=== PATIENT | male | born 1995 | race Caucasian/White ===

== ENCOUNTER 2016-06-29 00:07 | Emergency (ER) | payer OTHER ==
[~2016-06-29] VITALS: Ht 172.7 cm; Wt 68.0 kg
[2016-06-29 00:16] VITALS: BP 125/58; PULSE 92; RESP 14; TEMP 98.1; O2SAT 97
[2016-06-29] MEDS ORDERED: DIPHTH/TETANUS/ACEL PERTUSSIS (BOOSTER) 0.5 ML VIAL/PFS IM ONE (01:38)
[2016-06-29 02:43] LABS: AUTOMATED NEUTROPHIL # 6.8 TH/MM3 (1.8-7.7); BASOPHIL # 0.1 TH/MM3 (0-0.2); EOSINOPHIL # 0.3 TH/MM3 (0-0.4); EOSINOPHIL % 2.4 % (0.0-4.0); HEMATOCRIT 37.2 % (39.0-51.0); LYMPH % 26.6 % (9.0-44.0); LYMPHOCYTE # 2.9 TH/MM3 (1.0-4.8); MEAN CELL VOLUME 87.3 FL (80.0-100.0); MEAN CORPUSCULAR HEMOGLOBIN 30.6 PG (27.0-34.0); MEAN CORPUSCULAR HGB CONC 35.1 % (32.0-36.0); MONO % 8.4 % (0.0-8.0); NEUT % 61.6 % (16.0-70.0); PLATELET COUNT 328 TH/MM3 (150-450); RED BLOOD COUNT 4.26 MIL/MM3 (4.50-5.90)
[2016-06-29 02:44] LABS: HEMO FLAGS AUTO DIFF
[2016-06-29 02:59] LABS: BLOOD UREA NITROGEN 16 MG/DL (7-18)
[2016-06-29 03:00] LABS: ACETAMINOPHEN LESS THAN 2.0 MCG/ML (10.0-30.0); ALKALINE PHOSPHATASE 83 U/L (45-117); ALT (GPT) 27 U/L (12-78); ANION GAP 10 MEQ/L (5-15); AST (GOT) 31 U/L (15-37); BICARBONATE 24.1 MEQ/L (21.0-32.0); CHLORIDE 105 MEQ/L (98-107); GLOMERULAR FILTRATION RATE 77 ML/MIN (>89); POTASSIUM 3.7 MEQ/L (3.5-5.1); SODIUM (NA) 139 MEQ/L (136-145); TOTAL BILIRUBIN ADULT 0.7 MG/DL (0.2-1.0)
--- NOTE | 2016-06-29 03:03 | PD ---
HPI Chief Complaint: Psychiatric Symptoms Time Seen by Provider: 01:15 Travel History International Travel<30 days: No Contact w/Intl Traveler<30days: No Traveled to known affect area: No History of Present Illness HPI Patient comes in under George act by police. Patient states that he believes that he had a mental breakdown. Patient denies anything like this in the past. Denies any homicidal or suicidal ideations. Patient reports that he did cut his stomach but states he was not trying to commit suicide. Patient uncertain of his last tetanus shot. Patient does report a history of heroin abuse last use was yesterday. Patient denies any medical concerns. Denies any chest pain , shortness of breath, abdominal pain, nausea, vomiting, or fevers. PFSH Past Medical History Medical History: Denies Significant Hx Diminished Hearing: No Tetanus Vaccination: Unknown Influenza Vaccination: No Past Surgical History Surgical History: No Previous Surgery Social History Alcohol Use: No (3 weeks sober) Tobacco Use: No Substance Use: Yes ("WITHDRAWING FROM HEROIN CURRENTLY") Allergies-Medications (Allergen,Severity, Reaction): Coded Allergies: No Known Allergies (Unverified , 06/29/16) Reported Meds & Prescriptions Reported Meds & Active Scripts Active No Active Prescriptions or Reported Medications Review of Systems Except as stated in HPI: all other systems reviewed are Neg Physical Exam Narrative GENERAL: Well-developed, well nourished, in no acute distress, and non-ill appearing. SKIN: Warm and dry. Multiple superficial abrasions noted to anterior thoracic cavity. They are all superficial and non-repairable. HEAD: Atraumatic. Normocephalic. EYES: Pupils equal and round. EOMI. No scleral icterus. No injection or drainage. ENT: No nasal bleeding or discharge. Mucous membranes pink and moist. NECK: Trachea midline. Supple. No nuclear rigidity. CARDIOVASCULAR: Regular rate and rhythm. No murmur appreciated. RESPIRATORY: No accessory muscle use. No respiratory distress. Clear to auscultation. Breath sounds equal bilaterally. MUSCULOSKELETAL: No obvious deformities. No clubbing. No cyanosis. No edema. Full range of motion. NEUROLOGICAL: Awake and alert. No obvious cranial nerve deficits. Motor grossly within normal limits. Normal speech. PSYCHIATRIC: Appropriate mood and affect; insight and judgment normal. Data Data Last Documented VS Vital Signs Date Time Temp Pulse Resp B/P Pulse Ox O2 Delivery O2 Flow Rate FiO2 06/29/16 00:18 14 06/29/16 00:16 98.1 92 125/58 97 Orders Complete Blood Count With Diff (06/29/16 00:48) Comprehensive Metabolic Panel (06/29/16 00:48) Psych Screen (06/29/16 00:48) Drug Screen, Random Urine (06/29/16 00:48) Alcohol (Ethanol) (06/29/16 00:48) Salicylates (Aspirin) (06/29/16 00:48) Tylenol (Acetaminophen) (06/29/16 00:48) Jnwp-Cse-Fljukv (Booster) Inj (Boostrix (06/29/16 01:38) Labs Laboratory Tests Test 06/29/16 00:50 White Blood Count 11.0 TH/MM3 Red Blood Count 4.26 MIL/MM3 Hemoglobin 13.0 GM/DL Hematocrit 37.2 % Mean Corpuscular Volume 87.3 FL Mean Corpuscular Hemoglobin 30.6 PG Mean Corpuscular Hemoglobin 35.1 % Concent Red Cell Distribution Width 13.0 % Platelet Count 328 TH/MM3 Mean Platelet Volume 8.6 FL Neutrophils (%) (Auto) 61.6 % Lymphocytes (%) (Auto) 26.6 % Monocytes (%) (Auto) 8.4 % Eosinophils (%) (Auto) 2.4 % Basophils (%) (Auto) 1.0 % Neutrophils # (Auto) 6.8 TH/MM3 Lymphocytes # (Auto) 2.9 TH/MM3 Monocytes # (Auto) 0.9 TH/MM3 Eosinophils # (Auto) 0.3 TH/MM3 Basophils # (Auto) 0.1 TH/MM3 CBC Comment AUTO DIFF Sodium Level 139 MEQ/L Potassium Level 3.7 MEQ/L Chloride Level 105 MEQ/L Carbon Dioxide Level 24.1 MEQ/L Anion Gap 10 MEQ/L Blood Urea Nitrogen 16 MG/DL Creatinine 1.18 MG/DL Estimat Glomerular Filtration 77 ML/MIN Rate Random Glucose 105 MG/DL Calcium Level 9.2 MG/DL Total Bilirubin 0.7 MG/DL Aspartate Amino Transf 31 U/L (AST/SGOT) Alanine Aminotransferase 27 U/L (ALT/SGPT) Alkaline Phosphatase 83 U/L Total Protein 8.0 GM/DL Albumin 4.0 GM/DL Salicylates Level LESS THAN 1.7 MG/DL Acetaminophen Level LESS THAN 2.0 MCG/ML Ethyl Alcohol Level LESS THAN 3 MG/DL MDM Medical Decision Making Medical Screen Exam Complete: Yes Emergency Medical Condition: Yes Differential Diagnosis Homicidal, suicidal, substance abuse psychosis, abrasions, laceration, other Narrative Course Patient was seen and examined. Labs were obtained and reviewed with the exception of the urine drug screen. Patient medically cleared for further treatment and evaluation by psych. Final disposition per psych. Diagnosis Primary Impression: Self-inflicted injury Additional Impressions: Abrasion Substance abuse Additional Instructions: Keep wound dry and clean as possible using soap and water. Use Neosporin to promote healing. Scripts No Active Prescriptions or Reported Meds Condition: Stable Everardo Fontanez Jun 29, 2016 03:03
[2016-06-29 04:32] LABS: SCAN/DIFF AUTO DIFF CONFIRMED
[2016-06-29 11:01] VITALS: BP 106/59; PULSE 73; RESP 18; O2SAT 97
[2016-06-29 14:00] VITALS: BP 109/55; PULSE 51; RESP 18
[2016-06-29 15:28] LABS: BARBITURATES, URINE NEG (NEG)
[2016-06-29 15:30] LABS: AMPHETAMINE, URINE NEG (NEG); COCAINE, URINE POS (NEG)
--- NOTE | 2016-06-29 15:58 | PD ---
History of Present Illness Chief Complaint: Psychiatric Symptoms Time Seen by Provider: 15:00 Travel History International Travel<30 Days: No Contact w/Intl Traveler<30days: No Known affected area: No Legal Status Legal Status: AddIn Social History of Present Illness: History of Present Illness HPI 20 year old male with history of substance use disorder who comes in under George act by police. According to the report the patient reported that he was mentally unstable and severely depressed because they lost their daughter. He used a knife to cut himself superficially on the stomach to relieve the stress. Patient with hx of heroin abuse who has been attempting to withdraw from the drug w last use 2 days ago. He was at a public place with his when he was seen cutting himself. he denies that this was a suicide gesture or attempt but that he has engaged in SIB in the past. Patient 's toxicology is positive for opiates and cocaine. He is seen in J pod. He is alert and calm, He is engaging and cooperative. He has mild symptoms of withdrawal . He does not present any psychosis and no jose de jesus. No suicidal or homicidal ideation, intent or plan. He has had a 2 year period of being clean from heroin which is his drug of choice. he has been using IV heroin x 6 years. He is requesting discharge at this time. He states " I can't be a father and an addict." [facility] Past Medical History Medical History: Denies Significant Hx Diminished Hearing: No Tetanus Vaccination: Unknown Influenza Vaccination: No Past Surgical History Surgical History: No Previous Surgery Psychiatric History Psychiatric History Hx Psychiatric Treatment: TREATED A CHILD WITH SEROQUEL AND THEN VYVANCE FOR ADHD, OUTPATIENT History of Inpatient Treatment: No Guns or firearms in home: No Social History Born in [place]. Was in foster care at age 12 years. He ran away and lived on the streets at age [age] years old when he began to use heroin. He is currently unemployed and lives with his , their 2 week old infant and 2 adult friends. His 2 adult friends do not use . Hx Alcohol Use: No (3 weeks sober) Hx Tobacco Use: No Hx Substance Use: Yes Substance Use Type: Heroin, Cocaine Hx of Substance Use Treatment: Yes Family Psychiatric History None reported Allergies-Medications (Allergen,Severity, Reaction): Coded Allergies: No Known Allergies (Unverified , 06/29/16) Reported Meds & Prescriptions Reported Meds & Active Scripts Active No Active Prescriptions or Reported Medications Review of Systems Constitutional: COMPLAINS OF: Chills Endocrine: DENIES: Heat/cold intolerance, Polydipsia, Polyuria, Polyphagia Eyes: DENIES: Blurred vision, Diplopia, Eye inflammation, Eye pain, Vision loss , Photosensitivity, Double Vision Ears, nose, mouth, throat: COMPLAINS OF: Running Nose Respiratory: DENIES: Apneas, Cough, Snoring, Wheezing, Hemoptysis, Sputum production, Shortness of breath Cardiovascular: DENIES: Chest pain, Palpitations, Syncope, Dyspnea on Exertion , PND, Lower Extremity Edema, Orthopnea, Claudication Gastrointestinal: COMPLAINS OF: Diarrhea Genitourinary: DENIES: Sexual dysfunction, Urinary frequency, Urinary incontinence, Urgency, Hematuria, Dysuria, Nocturia, Penile Discharge, Testicular Pain, Testicular Swelling Musculoskeletal: DENIES: Joint pain, Muscle aches, Stiffness, Joint Swelling, Back pain, Neck pain Integumentary: DENIES: Abnormal pigmentation, Nail changes, Pruritus, Rash Hematologic/lymphatic: DENIES: Bruising, Lymphadenopathy Immunologic/allergic: DENIES: Eczema, Urticaria Neurologic: DENIES: Abnormal gait, Headache, Localized weakness, Paresthesias, Seizures, Speech Problems, Tremor, Poor Balance Psychiatric: DENIES: Anxiety, Confusion, Mood changes, Depression, Hallucinations, Agitation, Suicidal Ideation, Homicidal Ideation, Delusions Exam Alert: Yes [place]: Person (ox4) Mood: Calm Affect: Euthymic Speech: Clear, Logical Eye Contact: Normal Memory Intact: Comment (no impairment) Hallucinations: Other (negative) Delusions: No Suicidal: Ideation (deneis any) Homicidal: Ideation (denies any) Insight/Judgement Fair. Not impaired MDM Medical Decision Making Medical Record Reviewed: Yes Assessment/Plan 20 year old male with history of opiate use who was BA after he was observed cutting his abdomen. Patietn with history of SIB. This was not a suicide attempt. He is not depressed , not psychotic. He does not meet BA criteria. He is requesting discharge and wants to go home to be with his . He is aware of resources in community to help with his recovery including SMA. Will discharge. Orders Complete Blood Count With Diff (06/29/16 00:48) Comprehensive Metabolic Panel (06/29/16 00:48) Psych Screen (06/29/16 00:48) Drug Screen, Random Urine (06/29/16 00:48) Alcohol (Ethanol) (06/29/16 00:48) Salicylates (Aspirin) (06/29/16 00:48) Tylenol (Acetaminophen) (06/29/16 00:48) Swoa-Cyn-Vciimm (Booster) Inj (Boostrix (06/29/16 01:38) Diet Regular Basic (06/29/16 Breakfast) Diet Regular Basic (06/29/16 Lunch) Results Vital Signs Date Time Temp Pulse Resp B/P Pulse Ox O2 Delivery O2 Flow Rate FiO2 06/29/16 14:00 51 18 109/55 Room Air 06/29/16 11:01 73 18 106/59 97 Room Air 06/29/16 00:18 14 06/29/16 00:16 98.1 92 14 125/58 97 Laboratory Tests Test 06/29/16 06/29/16 00:50 14:00 White Blood Count 11.0 Red Blood Count 4.26 Hemoglobin 13.0 Hematocrit 37.2 Mean Corpuscular Volume 87.3 Mean Corpuscular Hemoglobin 30.6 Mean Corpuscular Hemoglobin 35.1 Concent Red Cell Distribution Width 13.0 Platelet Count 328 Mean Platelet Volume 8.6 Neutrophils (%) (Auto) 61.6 Lymphocytes (%) (Auto) 26.6 Monocytes (%) (Auto) 8.4 Eosinophils (%) (Auto) 2.4 Basophils (%) (Auto) 1.0 Neutrophils # (Auto) 6.8 Lymphocytes # (Auto) 2.9 Monocytes # (Auto) 0.9 Eosinophils # (Auto) 0.3 Basophils # (Auto) 0.1 CBC Comment AUTO DIFF Differential Comment AUTO DIFF CONFIRMED Sodium Level 139 Potassium Level 3.7 Chloride Level 105 Carbon Dioxide Level 24.1 Anion Gap 10 Blood Urea Nitrogen 16 Creatinine 1.18 Estimat Glomerular Filtration 77 Rate Random Glucose 105 Calcium Level 9.2 Total Bilirubin 0.7 Aspartate Amino Transf 31 (AST/SGOT) Alanine Aminotransferase 27 (ALT/SGPT) Alkaline Phosphatase 83 Total Protein 8.0 Albumin 4.0 Salicylates Level LESS THAN 1.7 Acetaminophen Level LESS THAN 2.0 Ethyl Alcohol Level LESS THAN 3 Urine Opiates Screen POS Urine Barbiturates Screen NEG Urine Amphetamines Screen NEG Urine Benzodiazepines Screen NEG Urine Cocaine Screen POS Urine Cannabinoids Screen NEG Diagnosis Primary Impression: Opiate dependence Additional Impressions: Self-inflicted injury Abrasion Psychiatrically Cleared: Yes Departure Forms: Tests/Procedures Patient Instructions: General Instructions, Opioid Dependence (ED) Additional Instructions: Keep wound dry and clean as possible using soap and water. Use Neosporin to promote healing. A LIST OF COMMUNITY RESOURCES PROVIDED FOR CHEMICAL DEPENDENCY Prescriptions No Active Prescriptions or Reported Meds Disposition: DISCHARGE HOME Condition: Stable Problem Qualifiers Primary Impression: Opiate dependence Qualified Code: F11.24 - Opioid dependence with opioid-induced mood disorder Maria Elena Wu Jun 29, 2016 15:58
== END 2016-06-29 15:52 | disposition home or self-care (01) ==
LOC: NEPA 00:07 → NEPJ 15:52
DX: F11.20 Opioid dependence, uncomplicated (principal); F39 Unspecified mood [affective] disorder; F11.23 Opioid dependence with withdrawal
CPT/HCPCS: 80053; 80307; 85025; 90471; 90715

== ENCOUNTER 2016-08-05 09:15 | Emergency (ER) | payer SELFPAY ==
[~2016-08-05] VITALS: Ht 172.7 cm; Wt 63.0 kg
[2016-08-05 09:23] VITALS: BP 131/76; PULSE 74; RESP 18; TEMP 98.2; O2SAT 100
[2016-08-05] MEDS ORDERED: ONDANSETRON HCL 4 MG/2 ML VIAL IV ONE (09:30)
[2016-08-05] MEDS ORDERED: METHOCARBAMOL 500 MG TAB PO ONE (09:30)
[2016-08-05 10:03] LABS: AUTOMATED NEUTROPHIL # 5.9 TH/MM3 (1.8-7.7); BASOPHIL % 0.3 % (0.0-2.0); EOSINOPHIL % 0.6 % (0.0-4.0); HEMATOCRIT 41.7 % (39.0-51.0); HEMO FLAGS DIFF FINAL; LYMPH % 15.5 % (9.0-44.0); LYMPHOCYTE # 1.2 TH/MM3 (1.0-4.8); MEAN CELL VOLUME 88.3 FL (80.0-100.0); MONO % 6.9 % (0.0-8.0); NEUT % 76.7 % (16.0-70.0); PLATELET COUNT 239 TH/MM3 (150-450); RED BLOOD COUNT 4.71 MIL/MM3 (4.50-5.90); RED CELL DISTRIBUTION WIDTH 13.5 % (11.6-17.2); WHITE BLOOD COUNT 7.7 TH/MM3 (4.0-11.0)
[2016-08-05 10:11] LABS: AMPHETAMINE, URINE NEG (NEG); BARBITURATES, URINE NEG (NEG); COCAINE, URINE NEG (NEG)
[2016-08-05 10:23] LABS: ANION GAP 5 MEQ/L (5-15); AST (GOT) 53 U/L (15-37); BICARBONATE 28.9 MEQ/L (21.0-32.0); BLOOD UREA NITROGEN 15 MG/DL (7-18); CHLORIDE 104 MEQ/L (98-107); GLOMERULAR FILTRATION RATE 102 ML/MIN (>89); POTASSIUM 4.1 MEQ/L (3.5-5.1); SODIUM (NA) 138 MEQ/L (136-145)
[2016-08-05 10:26] LABS: ALKALINE PHOSPHATASE 112 U/L (45-117); ALT (GPT) 252 U/L (12-78); TOTAL BILIRUBIN ADULT 0.6 MG/DL (0.2-1.0)
[2016-08-05] MEDS ORDERED: ONDANSETRON ODT 4 MG TAB PO ONE (10:45)
--- NOTE | 2016-08-05 10:45 | PD ---
HPI Chief Complaint: Psychiatric Symptoms Time Seen by Provider: 09:20 Travel History International Travel<30 days: No Contact w/Intl Traveler<30days: No Traveled to known affect area: No History of Present Illness HPI Is a 21-year-old male presents emergent from under a George act. He was reportedly sitting with his girlfriend at a restaurant. They were discussing being suicidal. They apparently are both using IV drugs and were discussing overdosing intentionally the next time he had enough heroin to do so. This was overheard by bystanders called the police department. Patient reports a history of IV drug use. States she's been treated for ADHD before. He's had suicidal thoughts before but doesn't like there've been treated or hospitalized. No other recent illness or injury. No other complaints. History Past Medical History Narrative Medical Active IV drug use Social History Alcohol Use: No (3 weeks sober) Tobacco Use: No Allergies-Medications (Allergen,Severity, Reaction): Coded Allergies: No Known Allergies (Unverified , 08/05/16) Reported Meds & Prescriptions Reported Meds & Active Scripts Active No Active Prescriptions or Reported Medications Review of Systems Except as stated in HPI: all other systems reviewed are Neg Physical Exam Narrative GENERAL: 21 year-old man, no acute distress. SKIN: Focused skin assessment warm/dry. HEAD: Atraumatic. Normocephalic. EYES: Pupils equal and round. No scleral icterus. No injection or drainage. ENT: No nasal bleeding or discharge. Mucous membranes pink and moist. NECK: Trachea midline. No JVD. CARDIOVASCULAR: Regular rate and rhythm. No murmur appreciated. RESPIRATORY: No accessory muscle use. Clear to auscultation. Breath sounds equal bilaterally. GASTROINTESTINAL: Abdomen soft, non-tender, nondistended. Hepatic and splenic margins not palpable. MUSCULOSKELETAL: No obvious deformities. No clubbing. No cyanosis. No edema. NEUROLOGICAL: Awake and alert. No obvious cranial nerve deficits. Motor grossly within normal limits. Normal speech. PSYCHIATRIC: Flat affect. Endorses SI. Data Data Last Documented VS Vital Signs Date Time Temp Pulse Resp B/P Pulse Ox O2 Delivery O2 Flow Rate FiO2 08/05/16 09:23 98.2 74 18 131/76 100 Orders Complete Blood Count With Diff (08/05/16 09:26) Comprehensive Metabolic Panel (08/05/16 09:26) Psych Screen (08/05/16 09:26) Drug Screen, Random Urine (08/05/16 09:26) Ondansetron Inj (Zofran Inj) (08/05/16 09:30) Methocarbamol (Robaxin) (08/05/16 09:30) Ondansetron Odt (Zofran Odt) (08/05/16 10:45) Labs Laboratory Tests Test 08/05/16 09:35 White Blood Count 7.7 TH/MM3 Red Blood Count 4.71 MIL/MM3 Hemoglobin 14.6 GM/DL Hematocrit 41.7 % Mean Corpuscular Volume 88.3 FL Mean Corpuscular Hemoglobin 31.0 PG Mean Corpuscular Hemoglobin 35.0 % Concent Red Cell Distribution Width 13.5 % Platelet Count 239 TH/MM3 Mean Platelet Volume 8.0 FL Neutrophils (%) (Auto) 76.7 % Lymphocytes (%) (Auto) 15.5 % Monocytes (%) (Auto) 6.9 % Eosinophils (%) (Auto) 0.6 % Basophils (%) (Auto) 0.3 % Neutrophils # (Auto) 5.9 TH/MM3 Lymphocytes # (Auto) 1.2 TH/MM3 Monocytes # (Auto) 0.5 TH/MM3 Eosinophils # (Auto) 0.0 TH/MM3 Basophils # (Auto) 0.0 TH/MM3 CBC Comment DIFF FINAL Differential Comment Sodium Level 138 MEQ/L Potassium Level 4.1 MEQ/L Chloride Level 104 MEQ/L Carbon Dioxide Level 28.9 MEQ/L Anion Gap 5 MEQ/L Blood Urea Nitrogen 15 MG/DL Creatinine 0.92 MG/DL Estimat Glomerular Filtration 102 ML/MIN Rate Random Glucose 96 MG/DL Calcium Level 9.7 MG/DL Total Bilirubin 0.6 MG/DL Aspartate Amino Transf 53 U/L (AST/SGOT) Alanine Aminotransferase 252 U/L (ALT/SGPT) Alkaline Phosphatase 112 U/L Total Protein 8.4 GM/DL Albumin 4.4 GM/DL Urine Opiates Screen NEG Urine Barbiturates Screen NEG Urine Amphetamines Screen NEG Urine Benzodiazepines Screen NEG Urine Cocaine Screen NEG Urine Cannabinoids Screen NEG MDM Medical Decision Making Medical Screen Exam Complete: Yes Emergency Medical Condition: Yes Interpretation(s) LABS: CBC is unremarkable. CMP remarkable for elevated AST and ALT, as well as elevated total protein. Urine drug screen negative Differential Diagnosis Depression, substance abuse, substance-induced mood disorder, other Narrative Course Medical decision making INITIAL: 21 year-old man presents to the emergency department under a George act. No somatic complaints. Active IV drug use. Patient is medically clear for psychiatric evaluation. Mental health screening discussed with the patient. Psychiatric screen ordered. Scripts No Active Prescriptions or Reported Meds Scott Dominguez MD August 05, 2016 10:45
--- NOTE | 2016-08-05 15:06 | PD ---
History of Present Illness Chief Complaint: Psychiatric Symptoms Time Seen by Provider: 14:20 Travel History International Travel<30 Days: No Contact w/Intl Traveler<30days: No Known affected area: No Legal Status Legal Status: George Act George Act Signed By: Carlos Hidalgo History of Present Illness: History of Present Illness HPI 21-year-old male with history of opiate abuse and dependence who presents under a George act initiated by EVELINE. He was reportedly sitting with his girlfriend at a restaurant and bystanders overheard him and his girlfriend having a conversation about overdosing intentionally the next time he had enough heroin to do so. he reported he used heroin the previous night but his current toxicology is negative. EMR is reviewed. The patient was evaluated on June 29, 2016 after he was seen cutting himself in a public place. The patient has a history of SIB as a way of dealing with stress. At that time his daughter had been taking away from him and was placed in foster care. Patient is seen in main ed.Alert, oriented, engaging and cooperative. There is no indication of any psychosis and no jose de jesus. he states that he is trying to get off heroin but that it is very difficult and that he fears that he may overdose at some point with his continued use. he is wanting to enter a detoxification center as he has been unable to stop his use of heroin on his own. He is not suicidal or homicidal and he is expressing his interest in getting detoxed. he tells me that has obtained information from a counselor about services at [facility] but that there was no bed availability when he called. PFSH Past Medical History Depression: Yes Diminished Hearing: No Psychiatric History Psychiatric History Hx Psychiatric Treatment: Reported hx of ADHD as a child History of Inpatient Treatment: No Guns or firearms in home: No Social History Lives with girlfriend. Has a daughter. Hx Alcohol Use: No (3 weeks sober) Hx Tobacco Use: No Hx Substance Use: Yes Substance Use Type: Heroin, Cocaine Hx of Substance Use Treatment: Yes ([facility] in the past.) Family Psychiatric History Negative Allergies-Medications (Allergen,Severity, Reaction): Coded Allergies: No Known Allergies (Unverified , 08/05/16) Reported Meds & Prescriptions Reported Meds & Active Scripts Active No Active Prescriptions or Reported Medications Review of Systems Constitutional: COMPLAINS OF: Diaphoretic episodes Endocrine: DENIES: Heat/cold intolerance, Polydipsia, Polyuria, Polyphagia Eyes: DENIES: Blurred vision, Diplopia, Eye inflammation, Eye pain, Vision loss , Photosensitivity, Double Vision Ears, nose, mouth, throat: COMPLAINS OF: Running Nose Respiratory: DENIES: Apneas, Cough, Snoring, Wheezing, Hemoptysis, Sputum production, Shortness of breath Cardiovascular: DENIES: Chest pain, Palpitations, Syncope, Dyspnea on Exertion , PND, Lower Extremity Edema, Orthopnea, Claudication Gastrointestinal: COMPLAINS OF: Diarrhea Genitourinary: DENIES: Sexual dysfunction, Urinary frequency, Urinary incontinence, Urgency, Hematuria, Dysuria, Nocturia, Penile Discharge, Testicular Pain, Testicular Swelling Musculoskeletal: DENIES: Joint pain, Muscle aches, Stiffness, Joint Swelling, Back pain, Neck pain Integumentary: DENIES: Abnormal pigmentation, Nail changes, Pruritus, Rash Neurologic: DENIES: Abnormal gait, Headache, Localized weakness, Paresthesias, Seizures, Speech Problems, Tremor, Poor Balance Psychiatric: DENIES: Anxiety, Confusion, Mood changes, Depression, Hallucinations, Agitation, Suicidal Ideation, Homicidal Ideation, Delusions Exam Alert: Yes [place]: Person (ox4) Mood: Calm Affect: Appropriate Speech: Clear, Logical Eye Contact: Normal Memory Intact: Comment (no impairmetn) Hallucinations: Other (neagtive) Delusions: No Suicidal: Ideation (deneis at present) Homicidal: Ideation (deneis at present) Insight/Judgement fair. poor. MDM Medical Decision Making Medical Record Reviewed: Yes Assessment/Plan 21 year old male with history of heroin abuse who is under a BA after bystanders overheard a conversation in which they believed they heard him and his girlfriend discussion or planning overdosing on heroin. The patient is not suicidal at this time. he is expressing a desire to begin to work on recovery. He has made a call to [facility]. He does not meet criteria for BA. He is provided information for [facility] and that he can access their services as a walk in. LIFT BA Orders Complete Blood Count With Diff (08/05/16 09:26) Comprehensive Metabolic Panel (08/05/16 09:26) Psych Screen (08/05/16 09:26) Drug Screen, Random Urine (08/05/16 09:26) Ondansetron Inj (Zofran Inj) (08/05/16 09:30) Methocarbamol (Robaxin) (08/05/16 09:30) Ondansetron Odt (Zofran Odt) (08/05/16 10:45) Results Vital Signs Date Time Temp Pulse Resp B/P Pulse Ox O2 Delivery O2 Flow Rate FiO2 08/05/16 09:23 98.2 74 18 131/76 100 Laboratory Tests Test 08/05/16 09:35 White Blood Count 7.7 Red Blood Count 4.71 Hemoglobin 14.6 Hematocrit 41.7 Mean Corpuscular Volume 88.3 Mean Corpuscular Hemoglobin 31.0 Mean Corpuscular Hemoglobin 35.0 Concent Red Cell Distribution Width 13.5 Platelet Count 239 Mean Platelet Volume 8.0 Neutrophils (%) (Auto) 76.7 Lymphocytes (%) (Auto) 15.5 Monocytes (%) (Auto) 6.9 Eosinophils (%) (Auto) 0.6 Basophils (%) (Auto) 0.3 Neutrophils # (Auto) 5.9 Lymphocytes # (Auto) 1.2 Monocytes # (Auto) 0.5 Eosinophils # (Auto) 0.0 Basophils # (Auto) 0.0 CBC Comment DIFF FINAL Differential Comment Sodium Level 138 Potassium Level 4.1 Chloride Level 104 Carbon Dioxide Level 28.9 Anion Gap 5 Blood Urea Nitrogen 15 Creatinine 0.92 Estimat Glomerular Filtration 102 Rate Random Glucose 96 Calcium Level 9.7 Total Bilirubin 0.6 Aspartate Amino Transf 53 (AST/SGOT) Alanine Aminotransferase 252 (ALT/SGPT) Alkaline Phosphatase 112 Total Protein 8.4 Albumin 4.4 Urine Opiates Screen NEG Urine Barbiturates Screen NEG Urine Amphetamines Screen NEG Urine Benzodiazepines Screen NEG Urine Cocaine Screen NEG Urine Cannabinoids Screen NEG Diagnosis Primary Impression: Substance abuse Psychiatrically Cleared: Yes Med/ Other Pt Specific Info: No Meds Exist/No RX given Prescriptions No Active Prescriptions or Reported Meds Disposition: 01 DISCHARGE HOME Condition: Stable Jodie Wus Naty Drummond RONALD August 05, 2016 15:06
--- NOTE | 2016-08-05 15:07 | PD ---
Data Data Last Documented VS Vital Signs Date Time Temp Pulse Resp B/P Pulse Ox O2 Delivery O2 Flow Rate FiO2 08/05/16 09:23 98.2 74 18 131/76 100 Orders Complete Blood Count With Diff (08/05/16 09:26) Comprehensive Metabolic Panel (08/05/16 09:26) Psych Screen (08/05/16 09:26) Drug Screen, Random Urine (08/05/16 09:26) Ondansetron Inj (Zofran Inj) (08/05/16 09:30) Methocarbamol (Robaxin) (08/05/16 09:30) Ondansetron Odt (Zofran Odt) (08/05/16 10:45) Labs Laboratory Tests Test 08/05/16 09:35 White Blood Count 7.7 TH/MM3 Red Blood Count 4.71 MIL/MM3 Hemoglobin 14.6 GM/DL Hematocrit 41.7 % Mean Corpuscular Volume 88.3 FL Mean Corpuscular Hemoglobin 31.0 PG Mean Corpuscular Hemoglobin 35.0 % Concent Red Cell Distribution Width 13.5 % Platelet Count 239 TH/MM3 Mean Platelet Volume 8.0 FL Neutrophils (%) (Auto) 76.7 % Lymphocytes (%) (Auto) 15.5 % Monocytes (%) (Auto) 6.9 % Eosinophils (%) (Auto) 0.6 % Basophils (%) (Auto) 0.3 % Neutrophils # (Auto) 5.9 TH/MM3 Lymphocytes # (Auto) 1.2 TH/MM3 Monocytes # (Auto) 0.5 TH/MM3 Eosinophils # (Auto) 0.0 TH/MM3 Basophils # (Auto) 0.0 TH/MM3 CBC Comment DIFF FINAL Differential Comment Sodium Level 138 MEQ/L Potassium Level 4.1 MEQ/L Chloride Level 104 MEQ/L Carbon Dioxide Level 28.9 MEQ/L Anion Gap 5 MEQ/L Blood Urea Nitrogen 15 MG/DL Creatinine 0.92 MG/DL Estimat Glomerular Filtration 102 ML/MIN Rate Random Glucose 96 MG/DL Calcium Level 9.7 MG/DL Total Bilirubin 0.6 MG/DL Aspartate Amino Transf 53 U/L (AST/SGOT) Alanine Aminotransferase 252 U/L (ALT/SGPT) Alkaline Phosphatase 112 U/L Total Protein 8.4 GM/DL Albumin 4.4 GM/DL Urine Opiates Screen NEG Urine Barbiturates Screen NEG Urine Amphetamines Screen NEG Urine Benzodiazepines Screen NEG Urine Cocaine Screen NEG Urine Cannabinoids Screen NEG MDM Supervised Visit with [facility]: No Narrative Course Psych cleared George act. Recommend outpatient follow-up. Diagnosis Primary Impression: Opiate dependence Additional Impression: Substance induced mood disorder Referrals: [facility] day Additional Instruction: Return to the emergency department for any new or worsening symptoms. Med/Other Pt SpecificInfo: No Change to Meds Scripts No Active Prescriptions or Reported Meds Disposition: 01 DISCHARGE HOME Condition: Stable cSott Dominguez MD August 05, 2016 15:07
== END 2016-08-05 16:18 | disposition home or self-care (01) ==
LOC: NEPE 09:15
DX: F19.24 Other psychoactive substance dependence with psychoactive substance-induced mood disorder (principal); F11.20 Opioid dependence, uncomplicated
CPT/HCPCS: 80053; 80307; 85025; 99283